=== PATIENT | male | born 1960 | race Caucasian/White ===

== ENCOUNTER 2016-06-29 16:41 | Emergency (ER) | payer BC ==
--- NOTE | 2016-07-23 21:30 | ER ---
ADMIT: 06/29/2016 RM/LOC: ER [facility] MR#: [id number] [address] [id number] LASHAWN MARTIN Shannon , Emergency Room Report SEX: M AGE: 56 : 1960 DATE: 06/29/2016 A 56-year-old says he was moving furniture when he experienced sudden back pain. See T-sheet for history and physical. Of note, the patient refused any injections. He was given p.o. Toradol, Flexeril, and prednisone, he refused those stating that [place] is what worked best for him. He was not given [place]. He then recanted and took his medicine. He was given a prescription for Ultram and a Medrol Dosepak, and discharged. DIAGNOSIS: Back pain. Tristan Glaser MD/ pratima JOB #: [id number] CC: Tristan Glaser MD, Attending Physician
== END 2016-06-29 18:20 | disposition home or self-care (01) ==
LOC: ER 16:41
DX: M54.6 Pain in thoracic spine (principal); F17.210 Nicotine dependence, cigarettes, uncomplicated